=== PATIENT | male | born 1975 | race Caucasian/White ===

== ENCOUNTER 2017-11-02 10:57 | Emergency (ER) | payer OTHER ==
[~2017-11-02] VITALS: Ht 172.7 cm; Wt 94.3 kg
[2017-11-02 11:17] VITALS: BP 132/87; Ht 172.7 cm; Wt 94.3 kg
== END 2017-11-02 11:50 | disposition left against medical advice (07) ==
LOC: ED 10:57
DX: Z53.21 Procedure and treatment not carried out due to patient leaving prior to being seen by health care provider (principal)